=== PATIENT | female | born 1995 | race Two or more races ===

== ENCOUNTER 2017-09-26 02:20 | Emergency (ER) | payer MEDICAID, OTHER ==
[~2017-09-26] VITALS: Ht 175.3 cm; Wt 60.0 kg
[2017-09-26 03:30] VITALS: BP 100/66
== END 2017-09-26 05:11 | disposition home or self-care (01) ==
LOC: ER 03:55
DX: T74.21XA Adult sexual abuse, confirmed, initial encounter (principal); F17.200 Nicotine dependence, unspecified, uncomplicated; F10.20 Alcohol dependence, uncomplicated
CPT/HCPCS: 99283; Z7610

== ENCOUNTER 2017-10-05 03:32 | Emergency (ER) | payer MEDICAID ==
[~2017-10-05] VITALS: Ht 175.3 cm; Wt 59.0 kg
[2017-10-05] MEDS ORDERED: AZITHROMYCIN 500 MG TABLET PO ONE (05:00)
[2017-10-05] MEDS ORDERED: CEFTRIAXONE SODIUM 250 MG/VIAL IM ONE (05:00)
[2017-10-05 05:42] LABS: CLARITY URINE CLEAR (CLEAR); COLOR URINE YELLOW (YELLOW); KETONES URINE NEGATIVE (NEGATIVE); LEUKOCYTE ESTERASE URINE 1+ (NEGATIVE); NITRITE URINE NEGATIVE (NEGATIVE); OCCULT BLOOD URINE NEGATIVE (NEGATIVE); PH URINE 5.5 (4.5-8.0); PROTEIN URINE NEGATIVE (NEGATIVE); SPECIFIC GRAVITY URINE 1.021 (1.005-1.030)
[2017-10-05 06:06] VITALS: BP 121/75
[2017-10-08 15:10] LABS: CHLAMYDIA TRACHOMATIS NAA Negative (Negative); NEISSERIA GONORRHOEAE NAA Negative (Negative)
== END 2017-10-05 08:30 | disposition home or self-care (01) ==
LOC: ER 03:32
DX: A59.01 Trichomonal vulvovaginitis (principal); F17.200 Nicotine dependence, unspecified, uncomplicated; F12.10 Cannabis abuse, uncomplicated
CPT/HCPCS: 81003; 81025; 87210; 87491; 87591; 96372; 99284; J0696; Z7610